=== PATIENT | male | born 1960 | race Caucasian/White ===

== ENCOUNTER → 2019-07-06 09:31 | Outpatient (CLI) | payer OTHER, SELFPAY ==
[2019-07-06 10:58] LABS: Blood Urea Nitrogen 15 mg/dL (9-20); Calcium 9.4 mg/dL (8.4-10.2); Carbon Dioxide 28 mmol/L (22-32); Chloride 104 mmol/L (98-107); Estimated Glomerular Filt Rate > 60.0 mL/min (>60); Glucose 110 mg/dL (70-100); HEMOLYSIS < 15 (0-50); Potassium 4.3 mmol/L (3.4-5.1); Sodium 141 mmol/L (137-145)
[2019-07-06 11:17] LABS: Vitamin D 25 Hydroxy (D3) 33.1 ng/mL (30.0-100.0)
[2019-07-06 11:28] LABS: Prostate Specific Antigen Scrn 3.34 ng/mL (0.1-4.0)
== END ==
PROVIDERS: PCP Student in an Organized Health Care Education/Training Program; Visit Provider Student in an Organized Health Care Education/Training Program
DX: Z12.5 Encounter for screening for malignant neoplasm of prostate (principal); E55.9 Vitamin D deficiency, unspecified; I10 Essential (primary) hypertension
CPT/HCPCS: 36415; 80048; 82306; G0103

== ENCOUNTER → 2019-07-11 09:51 | Outpatient (CLI) | payer OTHER, SELFPAY ==
--- NOTE | 2019-07-11 09:54 | DI.CT.S_ITS ---
PROCEDURE: CT ANGIO HEAD INDICATIONS: Family history cerebral hemorrhage. Postural presyncope TECHNIQUE: Precontrast 4.5 mm thick angled axial sections acquired from the foramen magnum to the vertex. After the administration of intravenous contrast, 1 mm thick sections acquired through the [place] of [place]. Postcontrast 4.5 mm thick sections then re-acquired from the foramen magnum to the vertex. 10 mm thick tyazosa-ffcoricqc-wdnrevfhzw (MIP) reformats were acquired of the central intracranial vasculature. For radiation dose reduction, the following was used: automated exposure control, adjustment of mA and/or kV according to patient size. COMPARISON: None. FINDINGS: Image quality: Excellent. Anterior circulation: Intracranial internal carotid arteries are normal in size and flow. The flow within the paired anterior cerebral arteries is normal and symmetric. The flow within the middle cerebral arteries is normal and symmetric. The anterior communicating artery is seen. No aneurysms are seen. Posterior circulation: Visualized portions of the vertebral arteries demonstrate normal caliber, and join to form a normal appearing basilar artery. Flow within the posterior cerebral arteries is normal and symmetric. No aneurysms are seen. CSF spaces: Ventricles are normal in size and shape. Basal cisterns are patent. No extra-axial fluid collections. Brain: No midline shift. No intracranial bleeds or masses. Galan-white matter interface appears intact. Skull and face: Calvarium and facial bones appear intact, without suspicious lesions. Sinuses: Visualized sinuses and mastoids are clear. IMPRESSION: No aneurysms are seen. Unremarkable intracranial study. Dictated by: Brent Lynne M.D. on 07/11/2019 at 9:25 Approved by: Brent Lynne M.D. on 07/11/2019 at 9:26
== END ==
PROVIDERS: PCP Student in an Organized Health Care Education/Training Program; Visit Provider Student in an Organized Health Care Education/Training Program
DX: R42 Dizziness and giddiness (principal); R55 Syncope and collapse; Z82.49 Family history of ischemic heart disease and other diseases of the circulatory system
CPT/HCPCS: 70496; Q9967

== ENCOUNTER → 2020-11-18 16:10 | Outpatient (CLI) | payer OTHER, SELFPAY ==
[2020-11-18 17:19] LABS: BUN Creatinine Ratio 14.1 (6-22); Blood Urea Nitrogen 14 mg/dL (9-20); Carbon Dioxide 28 mmol/L (22-32); Chloride 105 mmol/L (98-107); Estimated Glomerular Filt Rate > 60.0 mL/min (>60); Glucose 117 mg/dL (70-100); HEMOLYSIS < 15 (0-50); Potassium 3.8 mmol/L (3.4-5.1); Sodium 140 mmol/L (137-145)
[2020-11-18 17:49] LABS: Prostate Specific Antigen Scrn 2.99 ng/mL (0.1-4.0)
== END ==
PROVIDERS: PCP Student in an Organized Health Care Education/Training Program; Referring Provider Student in an Organized Health Care Education/Training Program; Visit Provider Student in an Organized Health Care Education/Training Program
DX: I10 Essential (primary) hypertension (principal); Z12.5 Encounter for screening for malignant neoplasm of prostate
CPT/HCPCS: 36415; 80048; G0103

== ENCOUNTER → 2024-08-31 09:39 | Outpatient (CLI) | payer OTHER, SELFPAY ==
[2024-08-31 10:29] LABS: Add Manual Diff / Slide Review NO; Basophils Absolute Auto 100 /uL (0-100); Basophils Percent Auto 1.1 % (0-2); Eosinophils Absolute Auto 100 /uL (0-450); Eosinophils Percent Auto 1.3 % (2-4); Hematocrit 47.6 % (41-53); Hemoglobin 16.2 g/dL (13.5-17.5); Lymphocytes Absolute Auto 1400 /uL (1100-4500); Lymphocytes Percent Auto 23.4 % (25-40); Mean Corpuscular Hemoglobin 30.9 PG (26-34); Monocytes Absolute Auto 500 /uL (0-900); Monocytes Percent Auto 8.5 % (3-14); Neutrophils Absolute Auto 3800 /uL (1500-7000); Neutrophils Percent Auto 65.7 % (50-75); Platelet Count 285 X10^3/uL (150-400); Red Blood Cell Count 5.23 X10^6/uL (4.5-5.9); Red Cell Distribution Width 13.5 % (11.6-14.8); White Blood Cell Count 5.8 X10^3/uL (4.5-11.0)
[2024-08-31 10:43] LABS: Hemoglobin A1C% w Est Avg Glu 5.6 % (4.0-6.0)
[2024-08-31 10:52] LABS: BUN Creatinine Ratio 13.1 (6-22); Blood Urea Nitrogen 13 mg/dL (9-20); Calcium 8.8 mg/dL (8.4-10.2); Carbon Dioxide 30 mmol/L (22-32); Chloride 101 mmol/L (98-107); Cholesterol 198 mg/dL (140-199); Estimated Glomerular Filt Rate > 60 mL/min (>60); Glucose 116 mg/dL (80-110); HDL Cholesterol 39 mg/dL (40-60); HEMOLYSIS < 15 (0-50); LDL Cholesterol Calculated 137 mg/dL (<100); Potassium 4.1 mmol/L (3.4-5.1); Sodium 139 mmol/L (137-145); Triglycerides 111 mg/dL (35-150)
== END ==
PROVIDERS: Family Provider Student in an Organized Health Care Education/Training Program; PCP Nurse Practitioner Family; Referring Provider Nurse Practitioner Family; Visit Provider Nurse Practitioner Family
DX: E66.9 Obesity, unspecified (principal); I10 Essential (primary) hypertension; E78.2 Mixed hyperlipidemia; Z72.0 Tobacco use
CPT/HCPCS: 36415; 80048; 80061; 83036; 85025

== ENCOUNTER → 2025-04-19 08:10 | Outpatient (CLI) | payer OTHER, SELFPAY ==
[2025-04-19 09:16] LABS: Blood Urea Nitrogen 16 mg/dL (9-20); Calcium 8.9 mg/dL (8.4-10.2); Carbon Dioxide 28 mmol/L (22-32); Chloride 103 mmol/L (98-107); Cholesterol 137 mg/dL (140-199); Estimated Glomerular Filt Rate > 60 mL/min (>60); Glucose 132 mg/dL (70-99); HDL Cholesterol 40 mg/dL (40-60); Potassium 4.0 mmol/L (3.4-5.1); Sodium 139 mmol/L (137-145); Triglycerides 109 mg/dL (35-150)
[2025-04-19 09:18] LABS: HEMOLYSIS 54 (0-50)
== END ==
PROVIDERS: PCP Nurse Practitioner Family; Referring Provider Nurse Practitioner Family; Visit Provider Nurse Practitioner Family
DX: I10 Essential (primary) hypertension (principal); E78.2 Mixed hyperlipidemia
CPT/HCPCS: 36415; 80048; 80061

== ENCOUNTER 2025-05-22 07:48 | Day surgery (SDC) | payer OTHER, SELFPAY ==
[2025-05-09 13:01] VITALS: BMI 33.9
--- NOTE | 2025-05-22 | PATH_ITS ---
[facility] Accession Number: [id number] No. of containers..01 Tissue . 01 Material submitted: . thigh - LEFT THIGH MASS . 01 Clinical history: . LEFT THIGH MASS 30 X 20 . 01 Diagnosis: SKIN, LEFT THIGH, EXCISION: Glomus tumor, peripheral margin involved. . NOTE: Immunohistochemical stains* were used to evaluate the neoplastic cells. The cells are SMA positive while ANUEL and LILY cytokeratin are negative. CD34 highlights intralesional vessels but is negative in the neoplastic cells. . Dr. Colleen Dobson has also reviewed the case and agrees. . * This test was developed and the performance characteristics were validated by [facility]. It has not been cleared or approved by the [place]. Food and Drug Administration. MRV 06/07/2025 1330 Local . 01 Electronically signed: . rToy Quesada MD, Dermatopathologist NPI- [id number] . 01 Gross description: . Received in formalin with two identifiers and left leg mass is a malave, unoriented ellipse of skin measuring 3.0 x 1.3 cm and excised to the depth of 1.2 cm. Inked blue, serially sectioned into 11 slices, and submitted as follows: . A1: Tips. A2-A5: Remaining sequential slices. (AER:[id number]) /MRV 05/29/2025 1819 Local . 01 Pathologist provided ICD-10: D21.10 . 01 CPT . 637538, [id number], [id number] Specimen Comment: A courtesy copy of this report has been sent to [facility] Performed at: [address] [address], [place], [place] [id number] MD Dante Almanza MD Phone: [phone]
--- NOTE | 2025-05-22 06:36 | PM.PREOP ---
Pre-operative Note Interval Note History & Physical reviewed/Exam performed by Physician: Yes Changes to H&P: No ASA Class (for procedural sedation): I
[2025-05-22 07:58] VITALS: BP 139/85; PULSE 64; RESP 17; TEMP 36.6; O2SAT 97
[2025-05-22] MEDS: LACTATED RINGERS 1,000 ML 42 ML IV (08:19)
--- NOTE | 2025-05-22 08:59 | SUR.OPER ---
Supine on padded OR bed, head on pillow, arms secured on padded arm boards at <90 degrees abduction, legs uncrossed, safety belt at thigh, tape over blanket over lower legs.
--- NOTE | 2025-05-22 09:16 | SUR.OPER ---
Supine on padded OR bed, head on pillow, arms secured on padded arm boards at <90 degrees abduction, legs uncrossed, safety belt across hips, operative leg flexed, secured with tape, and padded. tape over blanket over lower legs. provider approved final positioning
--- NOTE | 2025-05-22 09:32 | P.OP_ITS ---
Operative Date/Time/Diagnoses Date of procedure: 05/22/25 Time of procedure: 09:32 Pre-op diagnosis: Left thigh mass Post-op diagnosis: same Procedure & Clinicians Procedure: Excision left thigh mass Same procedure(s) as scheduled: Yes Indications: 65yo M with painful left thigh mass Surgeon: Moshe Chen Assisted?: Yes Operations Manager/Coordinator: King Green Anesthesia Type: MAC +/- Operative Notes Findings: Nodular tissue in subcutaneous layer, unclear etiology Closure Type: primary Specimen(s): other (left thigh mass) Applied: none Estimated Blood Loss (mL): 5 Blood products transfused: none Procedure in detail: After informed consent and satisfactory sedation, the left medial thigh was shaved, prepped and draped in the usual sterile manner. The patient received appropriate DVT prophylaxis. The site was marked in the preoperative holding area. Surgical time-out was performed with all team members in agreement. The planned skin incision was injected with 0.5% Marcaine with epinephrine, total of 30 cc used. The skin incision was made in an elliptical manner using the 15 blade knife. The incision was continued through the skin and subcutaneous tissues. The mass was very painful to the patient. It contained small nodules of tissue of unclear etiology. The question of neuroma is raised due to the significant pain upon palpation. Nonetheless, all visible nodules were removed with the mass and sent for permanent section. Hemostasis was achieved with cautery. The nodules were in the subcutaneous location. The mass measured 3 cm in greatest dimension. The subcutaneous layer was closed using 3-0 Vicryl interrupted. The skin incision was closed using 4-0 Monocryl in a subcuticular manner. Dermabond glue was applied as a final dressing. The estimated blood loss was minimal. The instrument sponge and needle counts were all correct x2. The patient tolerated the procedure well and was transported to the recovery area in stable condition. Complications: none Post-operative Condition: stable Disposition: PACU Plan for aftercare: PACU then home
[2025-05-22 09:35] VITALS: BP 131/60; PULSE 61; RESP 14; TEMP 36.2; O2SAT 96
[2025-05-22 09:40] VITALS: BP 126/65; PULSE 60; RESP 12; O2SAT 95
[2025-05-22 09:55] VITALS: BP 157/77; PULSE 58; RESP 12; TEMP 36.6; O2SAT 97
== END 2025-05-22 10:30 | disposition home or self-care (01) ==
PROVIDERS: PCP Nurse Practitioner Family; Referring Provider Surgery; Visit Provider Surgery
PROC: (CPT 27632; principal; 2025-05-22 09:30)
DX: D18.01 Hemangioma of skin and subcutaneous tissue (principal); R22.42 Localized swelling, mass and lump, left lower limb; Z72.0 Tobacco use
CPT/HCPCS: 27632; 27618; J1100; J1885; J2405; J2704; J7120